=== PATIENT | male | born 1975 | race Two or more races ===

== ENCOUNTER 2024-08-23 07:04 | Day surgery (SDC) | payer OTHER ==
[2024-08-23] MEDS ORDERED: ONDANSETRON HCL 2 MG/ML VIAL IV ONE (11:45)
[2024-08-23] MEDS ORDERED: DIPHENHYDRAMINE HCL 50 MG/ML VIAL 1ML IV ONE (11:45)
[2024-08-23] MEDS ORDERED: MIDAZOLAM HCL 2 MG/2 ML VIAL IV ONE (11:45)
[2024-08-23] MEDS ORDERED: fentaNYL CITRATE 50 MCG/ML AMPUL IV PUSH ONE (11:45)
== END 2024-08-23 12:50 | disposition home or self-care (01) ==
LOC: AMB-ENDOS 07:04 → CIR.AMB 15:15
PROVIDERS: ATTEND Colon & Rectal Surgery
DX: D12.0 Benign neoplasm of cecum (principal); D12.2 Benign neoplasm of ascending colon; D12.5 Benign neoplasm of sigmoid colon; D12.8 Benign neoplasm of rectum; K63.5 Polyp of colon

== ENCOUNTER 2024-12-01 08:19 | Day surgery (SDC) | payer OTHER ==
[2024-11-24 14:09] VITALS: BP 151/90
[2024-11-24 15:30] LABS: RH POSITIVE
[~2024-12-01] VITALS: Ht 170.2 cm; Wt 90.7 kg
[~2024-12-01 08:19] MED LIST: AMLODIPINE-OLM1 EACH
[2024-12-01] MEDS ORDERED: BUPIVACAINE HCL/MPF 0.5% 30ML VIAL ONE (10:48)
[2024-12-01] MEDS ORDERED: CEFTRIAXONE SODIUM 2,000 MG VIAL ONE (10:49)
[2024-12-01] MEDS ORDERED: METRONIDAZOLE/SODIUM CHLORIDE 500 MG/100 ML PIGGYBACK IV ONE ×2 (10:49→12:30)
[2024-12-01] MEDS ORDERED: LIDOCAINE HCL 1%/EPINEPHRINE 20ML VIAL IJ ONE ×2 (10:49→12:30)
[2024-12-01] MEDS ORDERED: DIBUCAINE 30 GM TUBE ONE (12:23)
[2024-12-01] MEDS ORDERED: HEMOSTATIC MATRIX 1 KIT KIT TOP ONE ×2 (12:24→12:30)
[2024-12-01] MEDS ORDERED: DIBUCAINE 30 GM TUBE RECTAL ONE (12:30)
[2024-12-01] MEDS ORDERED: POVIDONE-IODINE 118 ML BOTT TOP ONE (12:30)
[2024-12-01] MEDS ORDERED: CEFTRIAXONE SODIUM 2,000 MG VIAL IV ONE (12:30)
[2024-12-01] MEDS ORDERED: BUPIVACAINE HCL 30 ML VIAL IJ ONE (12:30)
[2024-12-01] MEDS ORDERED: SUGAMMADEX SODIUM 200 MG/2 ML VIAL IV ONE (13:07)
[2024-12-01] MEDS ORDERED: ENALAPRILAT DIHYDRATE 1.25 MG/ML VIAL IV ONE (16:28)
== END 2024-12-01 17:35 | disposition home or self-care (01) ==
LOC: O/R 08:19 → SURH 08:19 → CIR.AMB 08:19 → SURH 10:45 → EDSTATUS 10:45 → O/R 17:35 → CIR.AMB 17:35
PROVIDERS: ATTEND Colon & Rectal Surgery
DX: K62.1 Rectal polyp (principal); D3A.00 Benign carcinoid tumor of unspecified site

== ENCOUNTER 2025-05-16 08:12 | Day surgery (SDC) | payer OTHER ==
[2025-05-16] MEDS ORDERED: DIPHENHYDRAMINE HCL 50 MG/ML VIAL 1ML IV ONE (12:00)
[2025-05-16] MEDS ORDERED: fentaNYL CITRATE 50 MCG/ML AMPUL IV PUSH ONE (12:00)
[2025-05-16] MEDS ORDERED: MIDAZOLAM HCL 2 MG/2 ML VIAL IV ONE (12:00)
[2025-05-16] MEDS ORDERED: ONDANSETRON HCL 2 MG/ML VIAL IV ONE (12:00)
== END 2025-05-16 13:45 | disposition home or self-care (01) ==
LOC: AMB-ENDOS 08:12
PROVIDERS: ATTEND Colon & Rectal Surgery
DX: K63.5 Polyp of colon (principal); K62.1 Rectal polyp